=== PATIENT | female | born 1960 | race Caucasian/White ===

== ENCOUNTER → 2018-12-02 | Outpatient (REF) | LOC: M LAB LCGH 14:47 | PROVIDERS: ATTEND Physician Assistant | DX: D48.5 Neoplasm of uncertain behavior of skin (principal) ==

== ENCOUNTER → 2019-03-05 | Outpatient (REF) | payer OTHER | LOC: M LAB LCGH 12:57 | PROVIDERS: ATTEND Orthopaedic Surgery | DX: M85.641 Other cyst of bone, right hand (principal) ==